=== PATIENT | female | born 1960 | race American Indian/Alaskan Native ===

== ENCOUNTER 2020-06-21 22:29 | Observation (INO) | payer OTHER ==
--- NOTE | 2020-06-21 22:56 | Emergency Department Report ---
HPI - General Time Seen by Provider: 06/21/20 22:34 - [facility] HPI: Room 18 The patient is a 59-year-old female present with a chief complaint of syncope. The patient states she was in her usual state of health today and received her first Covid vaccination at 13: 00. The patient states at approximately 19: 00 she began getting sleepy so she got into the bed and went to sleep. Patient states when she awakened she noticed she had slurred speech and she felt weakness in both of her legs. The patient attempted to get out of bed but fell and lost consciousness. Patient states she eventually came to crawl to her phone and spoke with her son who came over and called 911. Patient denies chest pain, headache, shortness of breath abdominal pain or nausea/vomiting. ED Past Medical Hx - Past Medical History Hx Diabetes: Yes Additional medical history: Multiple sclerosis - Surgical History Past Surgical History?: No - Family History Family history: no significant - Social History Smoking Status: Never Smoker Substance Use Type: None (Denies illicit drug use) ED Review of Systems ROS: Stated complaint: WEAKNESS Other details as noted in HPI Constitutional: weakness Eyes: denies: eye pain ENT: denies: throat pain Respiratory: denies: shortness of breath Cardiovascular: denies: chest pain Endocrine: no symptoms reported Gastrointestinal: denies: abdominal pain, nausea, vomiting Genitourinary: denies: dysuria Musculoskeletal: denies: back pain Skin: denies: lesions Neurological: weakness. denies: headache Physical Exam - Physical Exam Physical Exam: GENERAL: The patient is well-developed well-nourished female lying on stretcher not appearing to be in acute distress. [] HEENT: Normocephalic. Atraumatic. Extraocular motions are intact. Patient has moist mucous membranes. NECK: Supple. Trachea midline CHEST/LUNGS: Clear to auscultation. There is no respiratory distress noted. HEART/CARDIOVASCULAR: Regular. There is no tachycardia. There is no gallop rub or murmur. ABDOMEN: Abdomen is soft, nontender. Patient has normal bowel sounds. There is no abdominal distention. SKIN: There is no rash. There is no edema. There is no diaphoresis. NEURO: The patient is awake, alert, and oriented. The patient is cooperative. Cranial nerves II through XII grossly intact. Patient is able to hold either arm at 45 degree angle for 10-second count however they are unsteady and frequently shake and drift but do not fall to the bed. Patient is able to hold right leg off of stretcher at 30 degrees for 5-second count however the legs are unsteady and frequently drift but did not fall to the bed the patient has normal speech. NIHSS= 0, GCS 15 MUSCULOSKELETAL: There is no evidence of acute injury. ED Course - Consultations Consultation #1: 06/21/20 22:59 Case discussed with tele-neurologist Dr. Craven- no TPA. No CTA necessary. Recommends medical work-up ED Medical Decision Making - Lab Data Result diagrams: 06/21/20 23:20 06/21/20 23:20 Laboratory Tests 06/21/20 06/21/20 06/21/20 23:20 23:20 23:20 WBC 6.4 RBC 4.34 Hgb 10.4 Hct 31.3 MCV 72 L MCH 24 L MCHC 33 RDW 14.3 Plt Count 245 Lymph % (Auto) 6.9 L Faulk % (Auto) 9.0 H Eos % (Auto) 0.1 Baso % (Auto) 0.5 Lymph # (Auto) 0.4 L Faulk # (Auto) 0.6 Eos # (Auto) 0.0 Baso # (Auto) 0.0 Seg Neutrophils % 83.5 H Seg Neutrophils # 5.3 PT 12.6 INR 0.96 APTT 35.7 Thrombin Time 15.4 Sodium 136 L Potassium 3.9 Chloride 98.6 Carbon Dioxide 27 Anion Gap 14 BUN 8 Creatinine 0.8 Estimated GFR > 60 BUN/Creatinine Ratio 10 Glucose 253 H Calcium 8.7 Magnesium 1.60 L Total Creatine Kinase 46 CK-MB (CK-2) < 1.0 CK-MB (CK-2) Rel Index 2.1 Troponin T < 0.010 TSH Free T4 06/21/20 23:20 WBC RBC Hgb Hct MCV MCH MCHC RDW Plt Count Lymph % (Auto) Faulk % (Auto) Eos % (Auto) Baso % (Auto) Lymph # (Auto) Faulk # (Auto) Eos # (Auto) Baso # (Auto) Seg Neutrophils % Seg Neutrophils # PT INR APTT Thrombin Time Sodium Potassium Chloride Carbon Dioxide Anion Gap BUN Creatinine Estimated GFR BUN/Creatinine Ratio Glucose Calcium Magnesium Total Creatine Kinase CK-MB (CK-2) CK-MB (CK-2) Rel Index Troponin T TSH 0.311 Free T4 0.94 - EKG Data -: EKG Interpreted by Me EKG shows normal: sinus rhythm Rate: normal - EKG Data When compared to previous EKG there are: previous EKG unavailable Interpretation: other (No ischemic changes seen) - Radiology Data Radiology results: report reviewed (CT head), image reviewed (CT head) [facility], [place] [address] [place] [address] Cat Scan Report Signed Patient: AHMET GAMINO MR#: [id number] : 1960 Acct:[id number] Age/Sex: 59 / F ADM Date: 06/21/20 Loc: ED Attending Dr: Ordering Physician: CRISTAL DIAZ MD Date of Service: 06/21/20 Procedure(s): CT head/brain wo con Accession Number(s): [id number] cc: CRISTAL DIAZ MD . CT HEAD WITHOUT CONTRAST INDICATION / CLINICAL INFORMATION: Syncope, slurred speech. TECHNIQUE: All CT scans at this location are performed using CT dose reduction for ALARA by means of automated exposure control. COMPARISON: None available. FINDINGS: HEMORRHAGE: None. EXTRA-AXIAL SPACES: Normal in size and morphology for the patient's age. VENTRICULAR SYSTEM: Normal in size and morphology for the patient's age. CEREBRAL PARENCHYMA: No significant abnormality. No acute territorial infarct. MIDLINE SHIFT OR HERNIATION: None. CEREBELLUM / BRAINSTEM: No significant abnormality. ORBITS: Normal as visualized. SOFT TISSUES of HEAD: No significant abnormality. CALVARIUM: No significant abnormality. PARANASAL SINUSES / MASTOID AIR CELLS: Normal as visualized. ADDITIONAL FINDINGS: None. IMPRESSION: 1. No intracranial bleed or large territorial infarction. CODE STROKE: Time of Communication (CEPHALOMETRIC TECHNICIAN/CDT): 10:26 PM central standard time 06/21/2020 Licensed Practitioner Receiving Report: Cristal Jenkins K Signer Name: Nj Amaya MD Signed: 06/21/2020 11:27 PM Workstation Name: [id number] Transcribed By: TL Dictated By: Nj Amaya MD Electronically Authenticated By: Nj Amaya MD Signed Date/Time: 06/21/202326 DD/ 22 TD/TT: - Differential Diagnosis MS, TIA, CVA, Critical care attestation.: If time is entered above; I have spent that time in minutes in the direct care of this critically ill patient, excluding procedure time. ED Disposition Clinical Impression: Syncope, Weakness, Hypomagnesemia Disposition: -09 OP ADMIT IP TO THIS HOSP Is pt being admited?: Yes Does the pt Need Aspirin: Yes Condition: Fair Instructions: Syncope (ED) Referrals: PRIMARY CARE, [Primary Care Provider] - 3-5 Days Time of Disposition: 00:23 (Hospitalist paged (Dr Narayanan))
--- NOTE | 2020-06-21 23:01 | Emergency Department Report ---
Blank Doc - Documentation Documentation: [facility] Consult Note # Demographics Consult Type: 0-6 hour Stroke First Name: Matilde Last Name: Adina Date of : 1960 Age: 59 Gender: female Time of initial page ([facility]): 06-21-2020, 20:52 Time of return call ([facility] Time): 06-21-2020, 20:52 # HPI Additional History: 59yo F had her COVID shot, feeling sleepy. went to take a nap because she was feeling really sleepy. she was unable to stand/fell out of bed. she was last well at 1900 EST, woke at 2100 EST wtih symptoms. EMS was reporting her going :in and out of consciousness" Last Known Normal: I have collected independent history specific to time last normal or last known well. We have collaborated with the provider and at this time, we have the most current timeline with the information that is available. # Scores Time of exam and NIHSS ([facility]): 06-21-2020, 20:52 Level of Consciousness 1a: [0] = Alert; keenly responsive LOC Questions 1b: [0] = Answers both questions correctly LOC Commands 1c: [0] = Performs both tasks correctly Best Gaze 2: [0] = Normal Visual 3: [0] = No visual loss Facial Palsy 4: [0] = Normal symmetrical movements Motor Arm Left 5a: [0] = No drift Motor Arm Right 5b: [0] = No drift Motor Leg Left 6a: [0] = No drift Motor Leg Right 6b: [0] = No drift Limb Ataxia 7: [0] = Absent Sensory 8: [0] = Normal Best Language 9: [0] = No aphasia Dysarthria 10: [0] = Normal Extinction and Inattention 11: [0] = No abnormality NIHSS Total: 0 # PMH-FH-SH Past Medical History: MS # Exam Motor: erratically moving her extremities in a non-neurologic type of # Assessment Impression: Stroke Mimic # Plan Thrombolytic/Intervention: NOT IV Alteplase or IA Intervention Alteplase Exclusion (<3 hour window): non-disabling deficit Intraarterial Exclusion: clinically consistent with small vessel disease Other: I have discussed my recommendations with the referring provider Additional Recommendations: - Metabolic and infectious evaluation. If ongoing complaints MRI brain wwo contrast would be reasonable # Logistics Telemedicine: Interactive 2 way audio and visual telecommunication technology was utilized during this visit
--- NOTE | 2020-06-21 23:32 | Cat Scan Report ---
. CT HEAD WITHOUT CONTRAST INDICATION / CLINICAL INFORMATION: Syncope, slurred speech. TECHNIQUE: All CT scans at this location are performed using CT dose reduction for ALARA by means of automated e xposure control. COMPARISON: None available. FINDINGS: HEMORRHAGE: None. EXTRA-AXIAL SPACES: Normal in size and morphology for the patient's age. VENTRICULAR SYSTEM: Normal in size and morphology for the patient's age. CEREBRAL PARENCHYMA: No significant abnormality. No acute territorial infarct. MIDLINE SHIFT OR HERNIATION: None. CEREBELLUM / BRAINSTEM: No significant abnormality. ORBITS: Normal as visualized. SOFT TISSUES of HEAD: No significant abnormality. CALVARIUM: No significant abnormality. PARANASAL SINUSES / MASTOID AIR CELLS: Normal as visualized. ADDITIONAL FINDINGS: None. IMPRESSION: 1. No intracranial bleed or large territorial infarction. CODE STROKE: Time of Communication (HAND CIGAR MAKER/CDT): 10:26 PM central standard time 06/21/2020 Licensed Practitioner Receiving Report: Cristal Jenkins Signer Name: Nj Amaya MD Signed: 06/21/2020 11:27 PM Workstation Name: [id number]
[2020-06-22 00:04] LABS: Basophils % (Auto) 0.5 % (0.0-1.8); Eosinophils % (Auto) 0.1 % (0.0-4.3); Hematocrit 31.3 % (30.3-42.9); Hemoglobin 10.4 gm/dl (10.1-14.3); Lymphocytes # (Auto) 0.4 K/mm3 (1.2-5.4); Lymphocytes % (Auto) 6.9 % (13.4-35.0); Mean Corpuscular HGB Conc 33 % (30-34); Mean Corpuscular Volume 72 fl (79-97); Monocytes # (Auto) 0.6 K/mm3 (0.0-0.8); Platelet Count 245 K/mm3 (140-440); Red Blood Count 4.34 M/mm3 (3.65-5.03); Red Cell Distribution Width 14.3 % (13.2-15.2)
[2020-06-22 00:09] LABS: BUN/Creatinine Ratio 10; Blood Urea Nitrogen 8 mg/dL (7-17); Calcium 8.7 mg/dL (8.4-10.2); Hemolysis Index 0
[2020-06-22 00:10] LABS: Free T4 (Free Thyroxine) 0.94 ng/dL (0.76-1.46)
[2020-06-22 00:13] LABS: INR 0.96 (0.87-1.13)
[2020-06-22 00:14] LABS: Partial Thromboplastin Time 35.7 Sec. (24.2-36.6); Thrombin Time 15.4 Sec. (15.1-19.6)
[2020-06-22 00:16] LABS: Creatine Kinase MB < 1.0 ng/mL (0.0-4.0)
[2020-06-22] MEDS ORDERED: MAGNESIUM SULFATE 2 GM/50 ML BAG IV ONE (00:21)
[2020-06-22] MEDS ORDERED: ASPIRIN 325 MG TAB PO ONE (00:23)
[2020-06-22 00:33] LABS: Bilirubin,Urine NEG (Negative); Blood,Urine NEG (Negative); Color,Urine Yellow (Yellow); Mucus,Urine FEW /HPF; Protein,Urine <15 mg/dL mg/dL (Negative); RBC,Urine < 1.0 /HPF (0.0-6.0); Urobilinogen,Urine < 2.0 mg/dL (<2.0)
[2020-06-22] MEDS ORDERED: ONDANSETRON 4 MG/2 ML INJ IV PRN ×2 (01:09)
[2020-06-22] MEDS ORDERED: DEXTROSE 50% IN WATER (25GM) 50 ML SYRINGE IV PRN (01:09)
[2020-06-22] MEDS ORDERED: METOCLOPRAMIDE 10 MG TAB PO PRN (01:09)
[2020-06-22] MEDS ORDERED: MORPHINE 2 MG/1 ML INJ IV PRN (01:09)
[2020-06-22] MEDS ORDERED: MAGNESIUM HYDROXIDE (MOM) ORAL LIQD UDC PO PRN ×2 (01:09)
[2020-06-22] MEDS ORDERED: ACETAMINOPHEN 325 MG TAB PO PRN ×2 (01:09)
[2020-06-22] MEDS ORDERED: PROMETHAZINE 25 MG RECT SUPP PR PRN (01:09)
--- NOTE | 2020-06-22 01:21 | History and Physical Report ---
History of Present Illness Date of examination: 06/22/20 Date of admission: 06/22/20 00:38 Chief complaint: Slurred speech History of present illness: 59-year-old female with significant past medical history of diabetes mellitus and multiple sclerosis presenting to the emergency room today complaining of syncope. Patient states that she received the first dose of the Covid vaccine at approximately 1300 on June 21, 2020 but at 1900 she went to sleep but then la ter woke up having slurred speech and having weakness in both lower extremities. Patient attempted getting up but states that she had a syncopal episode. She was subsequently able to get to her phone and EMS was called. Upon arrival in the emergency room patient's slurred speech had cleared. She denies any fever or chills, no chest pain no shortness of breath, no nausea or vomiting, no abdominal pain, no hematuria or dysuria. Patient denies any sick contacts and no recent travel. She denies contact with anyone with COVID-19. Work-up in the emergency room today has been unremarkable except for mild hypomagnesemia. Patient is being admitted for evaluation of syncope versus possible TIA. Past History Past Medical History: diabetes, other (Multiple Sclerosis) Past Surgical History: No surgical history Social history: no significant social history Family history: no significant family history Medications and Allergies Allergies Allergy/AdvReac Type Severity Reaction Status Date / Time No Known Allergies Allergy Unverified 02/17/18 09:43 Review of Systems Constitutional: no fever, no chills Ears, nose, mouth and throat: no nasal congestion, no sore throat Cardiovascular: no chest pain, no palpitations Respiratory: no cough, no shortness of breath Gastrointestinal: no abdominal pain, no nausea, no vomiting, no diarrhea Genitourinary Female: no flank pain, no dysuria, no hematuria Musculoskeletal: no neck pain, no low back pain Integumentary: no rash, no pruritis Neurological: no headaches, no confusion Psychiatric: no anxiety, no depression Endocrine: no polyphagia, no polydipsia, no polyuria, no nocturia Exam - Constitutional Vitals: Temp Pulse Resp BP Pulse Ox 97.3 F L 100 H 15 150/73 100 06/21/20 22:50 06/22/20 00:15 06/22/20 00:15 06/22/20 00:15 06/22/20 00:15 General appearance: Present: no acute distress, well-nourished - EENT Eyes: Present: PERRL, EOM intact. Absent: scleral icterus ENT: hearing intact, clear oral mucosa, dentition normal - Neck Neck: Present: supple, normal ROM - Respiratory Respiratory effort: normal Respiratory: bilateral: CTA - Cardiovascular Rhythm: regular Heart Sounds: Present: S1 & S2. Absent: gallop, systolic murmur, diastolic murmur, rub, click - Extremities Extremities: no ischemia, pulses intact, pulses symmetrical, No edema, normal temperature, normal color, Full ROM Peripheral Pulses: within normal limits - Abdominal General gastrointestinal: Present: soft, non-tender, non-distended, normal bowel sounds. Absent: mass - Integumentary Integumentary: Present: clear, warm, dry. Absent: rash - Musculoskeletal Musculoskeletal: strength equal bilaterally - Psychiatric Psychiatric: appropriate mood/affect, intact judgment & insight, memory intact, cooperative - Neurologic Neurologic: CNII-XII intact, no focal deficits, moves all extremities HEART Score - HEART Score Troponin: Troponin T < 0.010 ng/mL (0.00-0.029) 06/21/20 23:20 Results - Labs CBC & Chem 7: 06/21/20 23:20 06/21/20 23:20 Labs: Abnormal lab results 06/21/20 06/21/20 Range/Units 23:20 23:20 MCV 72 L (79-97) fl MCH 24 L (28-32) pg Lymph % (Auto) 6.9 L (13.4-35.0) % Bonner % (Auto) 9.0 H (0.0-7.3) % Lymph # (Auto) 0.4 L (1.2-5.4) K/mm3 Seg Neutrophils % 83.5 H (40.0-70.0) % Sodium 136 L (137-145) mmol/L Glucose 253 H (65-100) mg/dL Magnesium 1.60 L (1.7-2.3) mg/dL Assessment and Plan - Patient Problems (1) Syncope Current Visit: Yes Status: Acute Plan to address problem: Patient will be scheduled for carotid Doppler and echocardiogram. (2) TIA (transient ischemic attack) Current Visit: Yes Status: Acute Plan to address problem: Patient placed on daily aspirin. Patient is being scheduled for echocardiogram and carotid Doppler. We will request neurology evaluation. (3) Hypomagnesemia Current Visit: Yes Status: Acute Plan to address problem: Magnesium will be repleted and will monitor chemistry. (4) DVT prophylaxis Current Visit: Yes Status: Acute Plan to address problem: Patient placed on subcutaneous heparin. (5) Full code status Current Visit: Yes Status: Acute Plan to address problem: Patient is a full code.
[2020-06-22] MEDS ORDERED: ASPIRIN 325 MG TAB PO SCH (10:00)
[2020-06-22] MEDS: INSULIN LISPRO 100 UNIT/ML SUB-Q SCH ×2 (10:29→12:27)
--- NOTE | 2020-06-22 13:28 | Event Note ---
Date: 06/22/20 Patient seen and examined 59-year-old female presented with dizziness CT head no acute process, carotid Doppler and 2D echo pending Wait for PT eval and pending results Continue supportive care
[2020-06-22 15:31] VITALS: BP 120/62
--- NOTE | 2020-06-23 13:59 | Electrocardiograph Report ---
[facility] Test Date: 2020-06-21 Test Time: 23:30:16 Pat Name: AHMET GAMINO Department: Room: A478 1 Gender: F City Editor: PEG : 1960 Requested By: ELOISA DAIZ Order Number: [id number] Reading MD: Juan Luis Escobar Measurements Intervals [place] Rate: 95 P: 70 MO: 143 QRS: -25 QRSD: 80 T: 59 QT: 334 QTc: 421 Interpretive Statements Sinus rhythm No previous ECG available for comparison Electronically Signed On 06-23-2020 10:59:01 PDT by Juan Luis Escobar
--- NOTE | 2020-06-26 11:14 | Discharge Summary ---
Providers - Providers Date of Admission: 06/22/20 00:38 Date of discharge: 06/22/20 Attending physician: MACIEL PRITCHARD 06/22/20 Consult to Physician [CONS] Routine Comment: Consulting Provider: VERÓNICA COLE Physician Instructions: Reason For Exam: Slurred Speech R/O CVA 06/22/20 01:09 Consult to Dietitian/Nutrition [CONS] Routine Physician Instructions: Reason For Exam: Reason for Consult: Diet education Occupational Therapy Evaluate and Treat [CONS] Routine Comment: Reason For Exam: Neuro deficits Physical Therapy Evaluation and Treat [CONS] Routine Comment: Reason For Exam: Neuro deficits Primary care physician: NASCAR RACER Hospitalization Condition: Fair Hospital course: 59-year-old female presented with Syncope CT head showed no acute process, carotid Doppler and 2D echo ordered and was pending Patient wanted to sign out AMA. I counselled her with RN to Wait for PT eval and pending results But she stated that she is feeling great and she will do other work up with her physician at [facility] She was explained about the potential risk of leaving AMA but she decided to leave and signed the paper for AMA. Vitals noted and was stable. Disposition: DC-07 LEFT AGAINST MED ADVICE Final Discharge Diagnosis (Prints w/discharge instructions): Syncope/TIA. Hypomagnesemia. Hyperglycemia Core Measure Documentation - Palliative Care Palliative Care/ Comfort Measures: Not Applicable - Core Measures Any of the following diagnoses?: history only Exam - Constitutional Vitals: Temp Pulse Resp BP Pulse Ox 98.3 F 87 18 120/62 97 06/22/20 11:34 06/22/20 11:34 06/22/20 11:34 06/22/20 11:34 06/22/20 11:34 General appearance: Present: no acute distress, well-nourished - EENT Eyes: Present: PERRL ENT: hearing intact, clear oral mucosa - Neck Neck: Present: supple, normal ROM - Respiratory Respiratory effort: normal Respiratory: bilateral: CTA - Cardiovascular Heart Sounds: Present: S1 & S2. Absent: rub, click - Extremities Extremities: pulses symmetrical, No edema Peripheral Pulses: within normal limits - Abdominal General gastrointestinal: Present: soft, non-tender, non-distended, normal bowel sounds - Integumentary Integumentary: Present: clear, warm, dry - Musculoskeletal Musculoskeletal: gait normal, strength equal bilaterally - Psychiatric Psychiatric: appropriate mood/affect, intact judgment & insight - Neurologic Neurologic: CNII-XII intact, moves all extremities Plan Activity: advance as tolerated Weight Bearing Status: Weight Bear as Tolerated Diet: low fat, low salt Follow up with: PRIMARY CARE, [Primary Care Provider] - 3-5 Days Forms: AMA Form
== END 2020-06-22 16:11 | disposition left against medical advice (07) ==
LOC: ED 22:29 → 4A 06-22 00:38
PROVIDERS: ADMIT Internal Medicine Geriatric Medicine; ATTEND Internal Medicine
DX: G45.9 Transient cerebral ischemic attack, unspecified (principal); R55 Syncope and collapse; R53.1 Weakness; E83.42 Hypomagnesemia; G35 Multiple sclerosis; E11.9 Type 2 diabetes mellitus without complications; Z79.899 Other long term (current) drug therapy
CPT/HCPCS: 36415; 70450; 80048; 81001; 82550; 82553; 82962; 83735; 84439; 84443; 84484; 85025; 85610; 85670; 85730; 93005; 93306; 96365; 96372; 97165; 99285; G0378; J3475; J1815